=== PATIENT | male | born 1990 | race American Indian/Alaskan Native ===

== ENCOUNTER 2018-10-20 08:35 | Emergency (ER) | payer SELFPAY ==
[2018-10-20 09:37] VITALS: BP 129/80
--- NOTE | 2018-10-20 11:03 | Emergency Department Report ---
ED Eye Problem HPI - General Chief complaint: Eye Problems Stated complaint: LT EYE PAIN/REDNESS Time Seen by Provider: 10/20/18 10:47 Source: patient Mode of arrival: Ambulatory Limitations: No Limitations - History of Present Illness Initial comments: Mr. Culp is a healthy gentleman without significant past medical history who presents with left eye pain and redness discharge for the past 3 days He self treated stye with warm compress. He feels that he may have introduced the infection with this treatment. He had a thick white discharge this morning. His eyelids were stuck together this morning. No cold symptoms. No trauma. Does not wear contact lenses. chief complaint: eye redness, other (discharge) -: Gradual, days(s) (3) Onset Description: gradual Location: left eye If Injury: none Eye Symptoms: redness, discharge Severity: mild Consistency: constant Associated Symptoms: none Treatments Prior to Arrival: OTC eye drops - Related Data Previous Rx's Medication Instructions Recorded Last Taken Type Polymyxin B Sulf/Trimethoprim 1 drop OP Q3HR 7 Days #1 bottle 10/20/18 Unknown Rx [Polytrim Eye Drops [id number]/0.1%] Allergies Allergy/AdvReac Type Severity Reaction Status Date / Time No Known Allergies Allergy Unverified 10/20/18 08:49 ED Review of Systems ROS: Stated complaint: LT EYE PAIN/REDNESS Other details as noted in HPI Constitutional: denies: fever, malaise Eyes: eye discharge. denies: eye pain, vision change ENT: denies: throat pain, congestion Respiratory: denies: cough, shortness of breath ED Past Medical Hx - Past Medical History Previous Medical History?: No - Surgical History Past Surgical History?: Yes Additional Surgical History: RT ARM SURGERY - Social History Smoking Status: Never Smoker Substance Use Type: Alcohol - Medications Home Medications: Home Medications Medication Instructions Recorded Confirmed Last Taken Type Polymyxin B Sulf/Trimethoprim 1 drop OP Q3HR 7 Days #1 bottle 10/20/18 Unknown Rx [Polytrim Eye Drops [id number]/0.1%] ED Physical Exam - General Limitations: No Limitations General appearance: alert, in no apparent distress - Head Head exam: Present: atraumatic, normocephalic - Eye Eye exam: Present: conjunctival injection. Absent: scleral icterus, periorbital swelling, periorbital tenderness - Expanded Eye Exam Expanded Eyelids: Normal Inspection: Left Pupils: Regular, Round: Left Sclera/Conjunctival: Injection: Left ED Course Vital Signs 10/20/18 09:35 Temperature 98.8 F Pulse Rate 79 Respiratory 16 Rate Blood Pressure 129/80 O2 Sat by Pulse 100 Oximetry ED Medical Decision Making - Medical Decision Making Acute conjunctivitis suspect bacterial infection with preceding symptoms of a "stye". Prescribed Polytrim ophthalmic drops. Referred to automotive parts salesperson. Critical care attestation.: If time is entered above; I have spent that time in minutes in the direct care of this critically ill patient, excluding procedure time. ED Disposition Clinical Impression: Acute conjunctivitis of left eye Disposition: DC-01 TO HOME OR SELFCARE Is pt being admited?: No Does the pt Need Aspirin: No Condition: Stable Instructions: Conjunctivitis (ED) Prescriptions: Polymyxin B Sulf/Trimethoprim [Polytrim Eye Drops [id number]/0.1%] 1 drop OP Q3HR 7 Days #1 bottle Referrals: JESSE CLAYTON MD [Staff Physician] - 2-3 Days Forms: Work/School Release Form(ED)
== END 2018-10-20 11:11 | disposition home or self-care (01) ==
LOC: ED 08:35
DX: H10.32 Unspecified acute conjunctivitis, left eye (principal); Z98.890 Other specified postprocedural states; Z79.899 Other long term (current) drug therapy

== ENCOUNTER 2018-10-22 11:14 | Emergency (ER) | payer SELFPAY ==
--- NOTE | 2018-10-22 11:24 | Emergency Department Report ---
Blank Doc - Documentation Documentation: pt just presents for a follow up for conjunctivitis pt was only evaluated in the ED three days ago has only been on the polytrim for three days, eye is improving advised him to finish his medication and see his primary care doctor once it has complete
== END 2018-10-22 11:23 | disposition left against medical advice (07) ==
LOC: ED 11:14
DX: H10.9 Unspecified conjunctivitis (principal); Z53.21 Procedure and treatment not carried out due to patient leaving prior to being seen by health care provider